=== PATIENT | female | born 1950 | race Two or more races ===

== ENCOUNTER 2024-12-31 16:47 | Emergency (ER) | payer MEDICARE ==
[~2024-12-31] VITALS: Ht 157.5 cm; Wt 68.2 kg
[2024-12-31 16:50] VITALS: BP 129/79; PULSE 84; RESP 16; TEMP 97.9; O2SAT 100
[2024-12-31] MEDS ORDERED: ALBU18HF12 IH (16:56)
[2024-12-31] MEDS ORDERED: GABA-1181 PO (16:56)
[2024-12-31] MEDS ORDERED: htn med PO (16:56)
== END 2024-12-31 18:10 | disposition home or self-care (01) ==
LOC: EMS 16:47
DX: S60.454A Superficial foreign body of right ring finger, initial encounter (principal); J45.909 Unspecified asthma, uncomplicated; I10 Essential (primary) hypertension; Z90.49 Acquired absence of other specified parts of digestive tract; Z88.0 Allergy status to penicillin; Z87.442 Personal history of urinary calculi; W49.04XA Ring or other jewelry causing external constriction, initial encounter; Y93.89 Activity, other specified; Y92.89 Other specified places as the place of occurrence of the external cause; Y99.8 Other external cause status
CPT/HCPCS: 99284; Z7502